=== PATIENT | male | born 1985 | race Caucasian/White ===

== ENCOUNTER 2017-05-02 04:29 | Emergency (ER) | payer MEDICAID ==
[2017-05-02 04:36] VITALS: BMI 20.3
[2017-05-02 04:37] VITALS: BP 163/79; PULSE 94; RESP 18; TEMP 98.6; O2SAT 97
[2017-05-02] MEDS ORDERED: Lidocaine 1% Inj (20ml) ONE (04:41)
--- NOTE | 2017-05-02 04:47 | ED PDOC ---
Arrival/HPI - General Chief Complaint: Abnormal Skin Integrity Time Seen by Provider: 05/02/17 04:36 Historian: Patient - History of Present Illness Narrative History of Present Illness (Text): 05/02/17 04:44 Octavio Calderon is a 32 year old male who presents to the emergency department for evaluation of laceration to lip. States he sustained the laceration while fixing a table at home when he cut his lip on a piece of metal. Last tetanus shot 2 years ago. Denies any fever, chills, headache, dizziness, chest pain, shortness of breath, or any other complaints at this time. Time/Duration: Prior to Arrival Symptom Onset: Sudden Activities at Onset: Light Context: Home Past Medical History - Provider Review Nursing Documentation Reviewed: Yes - Infectious Disease Hx of Infectious Diseases: None - Cardiac Hx Cardiac Disorders: No - Pulmonary Hx Respiratory Disorders: No - Neurological Hx Neurological Disorder: No - HEENT Other/Comment: eye surgery and earaches - Renal Hx Renal Disorder: No - Endocrine/Metabolic Hx Endocrine Disorders: No - Hematological/Oncological Hx Blood Disorders: No - Integumentary Hx Dermatological Disorder: No - Musculoskeletal/Rheumatological Hx Musculoskeletal Disorders: No - Gastrointestinal Hx Gastrointestinal Disorders: No - Genitourinary/Gynecological Hx Genitourinary Disorders: No - Psychiatric Hx Psychophysiologic Disorder: No Hx Substance Use: No - Surgical History Hx Eye Surgery: Yes - Anesthesia Hx Anesthesia: Yes Hx Anesthesia Reactions: No Hx Malignant Hyperthermia: No Family/Social History - Physician Review Nursing Documentation Reviewed: Yes Family/Social History: No Known Family HX Smoking Status: Never Smoked Hx Alcohol Use: No Hx Substance Use: No Allergies/Home Meds Allergies/Adverse Reactions: Allergies No Known Allergies Allergy (Verified 07/04/16 20:34) Home Medications: Home Meds Medication Instructions Recorded Confirmed No Known Home Med 07/04/16 05/02/17 Review of Systems - Physician Review All systems were reviewed & negative as marked: Yes - Review of Systems Constitutional: Normal. absent: Fatigue, Fevers ENT: Other (laceration to lip ) Respiratory: Normal, Cough. absent: SOB Cardiovascular: Normal. absent: Chest Pain, Palpitations Gastrointestinal: Normal. absent: Abdominal Pain, Diarrhea, Nausea, Vomiting Genitourinary Male: Normal. absent: Dysuria, Frequency Neurological: Normal. absent: Headache, Dizziness Physical Exam Vital Signs Reviewed: Yes Vital Signs Temp Pulse Resp BP Pulse Ox 05/02/17 04:30 98.6 F 94 H 18 163/79 H 97 Temperature: Afebrile Blood Pressure: Hypertensive Pulse: Regular Respiratory Rate: Normal Appearance: Positive for: Well-Appearing, Non-Toxic, Comfortable Pain Distress: None Mental Status: Positive for: Alert and Oriented X 3 - Systems Exam Head: Present: Normocephalic Pupils: Present: PERRL Extroacular Muscles: Present: EOMI Conjunctiva: Present: Normal Mouth: Present: Moist Mucous Membranes, Normal Lips (3 cm laceration on lower lip with a 3 mm adjacent laceration ) Respiratory/Chest: Present: Clear to Auscultation, Good Air Exchange. No: Respiratory Distress, Accessory Muscle Use Cardiovascular: Present: Regular Rate and Rhythm, Normal S1, S2. No: Murmurs Neurological: Present: GCS=15, CN II-XII Intact, Speech Normal, Motor Func Grossly Intact, Normal Sensory Function Skin: Present: Warm, Dry, Normal Color. No: Rashes Psychiatric: Present: Alert, Oriented x 3, Normal Insight, Normal Concentration Medical Decision Making ED Course and Treatment: 05/02/17 04:50 Impression: A 32 year old male who presents to the emergency department for evaluation of laceration to lower lip. Plan: -- Lac repair -- Reassess and disposition Progress Notes: PROCEDURE: LACERATION REPAIR Performed by the emergency provider Location: Lower lip Length: 3 cm laceration with 3 mm adjacent laceration. Description: clean wound edges, no foreign bodies Distal CMS: Normal. No deficits. Neurovascularly intact. Anesthesia: Lidocaine 1% Preparation: The wound was cleaned with NS and [place]. The area was prepped and draped in the usual sterile fashion. Exploration: The wound was explored and no foreign bodies were found. Procedure: The wound was closed with nylon. There was good approximation. In total, 13 stitches were used. Post-Procedure: Good closure and hemostasis. The patient tolerated the procedure well and there were no complications. 05/02/17 05:30 Patient is stable for discharge. Advised to follow up with PMD in 5 days for suture removal and present to emergency department for any new or worsening symptoms. - Medication Orders Current Medication Orders: Discontinued Medications Lidocaine HCl (Lidocaine 1% (20ml)) Confirm Administered Dose 20 ml .ROUTE .[employer]self ONE Stop: 05/02/17 04:42 - Scribe Statement The provider has reviewed the documentation as recorded by the Kristaibe Mu Meier Provider Attestation: Provider Scribe Attestation: All medical record entries made by the Scribe were at my direction and personally dictated by me. I have reviewed the chart and agree that the record accurately reflects my personal performance of the history, physical exam, medical decision making, and the department course for this patient. I have also personally directed, reviewed, and agree with the discharge instructions and disposition. Disposition/Present on Arrival - Present on Arrival Any Indicators Present on Arrival: No History of DVT/PE: No History of Uncontrolled Diabetes: No Urinary Catheter: No History of Decub. Ulcer: No History Surgical Site Infection Following: None - Disposition Have Diagnosis and Disposition been Completed?: Yes Diagnosis: Lip laceration Disposition: HOME/ ROUTINE Disposition Time: 05:27 Patient Plan: Discharge Condition: GOOD Discharge Instructions (ExitCare): Care For Your Stitches (ED), Laceration (ED) , Facial Laceration (ED) Additional Instructions: Keep wound clean and dry/apply bacitracin ointment twice daily/follow up with your doctor in 5 days to have stiches removed Forms: [employer] ([place])
== END 2017-05-02 05:52 | disposition home or self-care (01) ==
LOC: ED 04:29
DX: S01.511A Laceration without foreign body of lip, initial encounter (principal); W45.8XXA Other foreign body or object entering through skin, initial encounter; Y93.E9 Activity, other interior property and clothing maintenance; Y92.008 Other place in unspecified non-institutional (private) residence as the place of occurrence of the external cause